=== PATIENT | female | born 1985 | race Caucasian/White ===

== ENCOUNTER 2020-09-28 20:16 | Emergency (ER) | payer OTHER ==
[2020-09-28 20:26] VITALS: BP 145/92; PULSE 107; RESP 18; TEMP 98.9
--- NOTE | 2020-09-28 20:44 | ED ---
General Adult HPI - General Chief complaint: Psychiatric Symptoms Stated complaint: Mental Health Time Seen by Provider: 09/28/20 20:27 Source: patient, EMS Mode of arrival: EMS Limitations: no limitations - History of Present Illness Initial comments: Dictation was produced using [employer] dictation software. please excuse any grammatical, word or spelling errors. This patient was cared for during a federal and state declared state of emergency secondary to Covid 19 Chief Complaint: Patient is a 35-year-old female with suicidal thoughts. History of Present Illness: 35-year-old female she is under a lot of stress because she had her children removed from her house by CPS due to unsafe living conditions secondary to patient's alcohol abuse. Patient encountered law enforcement. She stated to them that she she was suicidal. She is brought here by law enforcement. Patient denies being suicidal at this time. She denies any history of psychiatric disease. Patient has any homicidal ideation. No visual or auditory hallucinations. The ROS documented in this emergency department record has been reviewed and confirmed by me. Those systems with pertinent positive or negative responses have been documented in the HPI. All other systems are other negative and/or noncontributory. PHYSICAL EXAM: General Impression: Alert and oriented x3, not in acute distress HEENT: Normocephalic atraumatic, extra-ocular movements intact, pupils equal and reactive to light bilaterally, mucous membranes moist. Cardiovascular: Heart regular rate and rhythm Chest: Able to complete full sentences, no retractions, no tachypnea Abdomen: abdomen soft, non-tender, non-distended, no organomegaly Musculoskeletal: Pulses present and equal in all extremities, no peripheral edema Motor: no focal deficits noted Neurological: CN II-XII grossly intact, no focal motor or sensory deficits noted Skin: Intact with no visualized rashes Psych: Tearful ED course: 35-year-old female presents to the emergency department after stating to enforcement that she is suicidal. As upon arrival are within acceptable limits. Patient medically stable at this time. She is cleared for EPS evaluation. Patient evaluated by EPS and recommended discharge and discharge planning. Agree with this disposition. Patient be discharged. - Related Data Home Medications Medication Instructions Recorded Confirmed No Known Home Medications 09/28/20 09/28/20 Allergies Allergy/AdvReac Type Severity Reaction Status Date / Time No Known Allergies Allergy Unverified 09/28/20 21:05 Review of Systems ROS Statement: Those systems with pertinent positive or pertinent negative responses have been documented in the HPI. ROS Other: All systems not noted in ROS Statement are negative. Past Medical History Past Medical History: No Reported History History of Any Multi-Drug Resistant Organisms: None Reported Smoking Status: Current every day smoker Past Alcohol Use History: Occasional Past Drug Use History: Cocaine General Exam Limitations: no limitations Course Vital Signs 09/28/20 20:18 Temperature 98.9 F Pulse Rate 107 H Respiratory 18 Rate Blood Pressure 145/92 O2 Sat by Pulse 97 Oximetry Disposition Clinical Impression: Suicidal ideation Disposition: HOME SELF-CARE Condition: Good Instructions (If sedation given, give patient instructions): Suicide Prevention (ED) Is patient prescribed a controlled substance at d/c from ED?: No Referrals: Jose M Mcintosh MD [Primary Care Provider] - 1-2 days Time of Disposition: 22:27
== END 2020-09-28 23:02 | disposition home or self-care (01) ==
LOC: EC 20:16
DX: R45.851 Suicidal ideations (principal); F17.200 Nicotine dependence, unspecified, uncomplicated
CPT/HCPCS: 82075; 99285

== ENCOUNTER 2021-01-09 15:29 | Observation (INO) | payer OTHER ==
[2021-01-09] MEDS ORDERED: LORazepam 2 MG/ML INJ IM STA (16:10)
--- NOTE | 2021-01-09 16:13 | ED ---
General Adult HPI - General Chief complaint: Psychiatric Symptoms Stated complaint: EPS eval Time Seen by Provider: 01/09/21 15:40 Source: patient, EMS Mode of arrival: EMS Limitations: no limitations - History of Present Illness Initial comments: Dictation was produced using [employer] dictation software. please excuse any grammatical, word or spelling errors. This patient was cared for during a federal and state declared state of emergency secondary to Covid 19 Chief Complaint: 35-year-old female presents via EMS for acute psychosis History of Present Illness: 35-year-old female she states she has psychiatric disease. Patient is a poor historian. According to the nurse received 4 from EMS a chin allegedly called 911 capacity brought here to the emergency department. She states she's being stalked by a gentleman named "Leonardo." She states that leonardo used to be her friend however she states that she he's been following her. Patient reports having history of psychiatric illness. States that she takes psychiatric medications. Patient history of present illness Limited by patient not being cooperative. Patient refusing vital signs. She states that there is a microphone right outside of the bed that Leonardo is using to listen to our conversation. Allegedly according to nurse patient recently used methamphetamines. The ROS documented in this emergency department record has been reviewed and confirmed by me. Those systems with pertinent positive or negative responses have been documented in the HPI. All other systems are other negative and/or noncontributory. PHYSICAL EXAM: General Impression: Alert and oriented x3, anxious HEENT: Normocephalic atraumatic, extra-ocular movements intact, pupils equal and reactive to light bilaterally, mucous membranes moist. Cardiovascular: Heart regular rate and rhythm Chest: Able to complete full sentences, no retractions, no tachypnea Abdomen: abdomen soft, non-tender, non-distended, no organomegaly Musculoskeletal: Pulses present and equal in all extremities, no peripheral edema Motor: no focal deficits noted Neurological: CN II-XII grossly intact, no focal motor or sensory deficits noted Skin: Intact with no visualized rashes Psych: Paranoid, psychotic ED course: 35-year-old female with unknown medical history presents to the emergency department with acute psychosis. Patient is uncooperative. Verbal de-escalation is not successful. Patient given IM Ativan 2 mg. Patient is given 2 mg of IM Ativan with no effect. Patient continues to be unc ooperative. Verbal De-escalation continues to be unsuccessful. Patient given 5 days of IM Haldol and 50 mg of IM Benadryl. EKG interpretation: Ventricular rate 108, sinus tachycardia,. Interval 184, QRS 86, QTC 474. No PA prolongation, no QTC prolongation, no ST or T-wave changes noted. Overall, this EKG is unremarkable Patient was mildly hypoglycemic on her laboratory evaluation she was given dextrose IV. She was reevaluated around 8:45 PM found to be in stable medical condition. She is awake, and cooperative. She is tolerating oral intake. Subsequent the glucose measurements were trended. She did become hypoglycemic in the 60s after initiation of oral intake. At this point is unclear why patient's hypoglycemic. She'll be admitted to medicine with psychiatry on consult. Patient be admitted for hyperglycemia. Case discussed with [facility] hospitalist group Dr. Hammonds. - Related Data Home Medications Medication Instructions Recorded Confirmed Albuterol Sulfate [Proair Hfa] 2 puff INHALATION RT-Q6H PRN 01/09/21 01/09/21 Ibuprofen [Motrin] 600 mg PO BID PRN 01/09/21 01/09/21 Lisinopril-Hctz 20-25 mg 1 tab PO DAILY 01/09/21 01/09/21 [Zestoretic 20-25] Vivitrol 380mg/4ml Vial 380 mg PO Q28D 01/09/21 01/09/21 Allergies Allergy/AdvReac Type Severity Reaction Status Date / Time No Known Allergies Allergy Unverified 09/28/20 21:05 Review of Systems ROS Statement: Those systems with pertinent positive or pertinent negative responses have been documented in the HPI. ROS Other: All systems not noted in ROS Statement are negative. Past Medical History Past Medical History: No Reported History History of Any Multi-Drug Resistant Organisms: None Reported Past Surgical History: No Surgical Hx Reported Past Psychological History: Unable to Obtain Smoking Status: Current every day smoker Past Alcohol Use History: Occasional Past Drug Use History: Cocaine, Methamphetamine General Exam Limitations: no limitations Course Vital Signs 01/09/21 01/09/21 15:45 17:32 Pulse Rate 117 H Respiratory 22 Rate Blood Pressure 115/99 104/55 O2 Sat by Pulse 95 Oximetry Procedures - Restraint - Face to Face Restraint Occurrence 1 Patient's Immediate Situation: Endangers self safety, Endangers others' safety, Endangers staff safety Patient's Reaction to the Intervention: Uncooperative Patient's Medical & Behavioral Condition: Awake, Agitated Need to Continue or Terminate Restraint or Seclusion: Continue Face to Face Eval of Restraint Date: 01/09/21 Face to Face Eval of Restraint Time: 17:06 Medical Decision Making - Lab Data Result diagrams: 01/09/21 17:38 01/09/21 17:39 Lab Results 01/09/21 01/09/21 01/09/21 Range/Units 16:09 17:38 17:39 WBC 15.0 H (3.8-10.6) k/uL RBC 4.26 (3.80-5.40) m/uL Hgb 12.5 (11.4-16.0) gm/dL Hct 38.9 (34.0-46.0) % MCV 91.3 (80.0-100.0) fL MCH 29.4 (25.0-35.0) pg MCHC 32.1 (31.0-37.0) g/dL RDW 14.2 (11.5-15.5) % Plt Count 405 (150-450) k/uL MPV 6.4 Neutrophils % 77 % Lymphocytes % 16 % Monocytes % 6 % Eosinophils % 0 % Basophils % 0 % Neutrophils # 11.5 H (1.3-7.7) k/uL Lymphocytes # 2.4 (1.0-4.8) k/uL Monocytes # 0.8 (0-1.0) k/uL Eosinophils # 0.0 (0-0.7) k/uL Basophils # 0.1 (0-0.2) k/uL Sodium 134 L (137-145) mmol/L Potassium 3.8 (3.5-5.1) mmol/L Chloride 105 (98-107) mmol/L Carbon Dioxide 16 L (22-30) mmol/L Anion Gap 13 mmol/L BUN 19 H (7-17) mg/dL Creatinine 0.75 (0.52-1.04) mg/dL Est GFR (CKD-EPI)AfAm >90 (>60 ml/min/1.73 sqM) Est GFR (CKD-EPI)NonAf >90 (>60 ml/min/1.73 sqM) Glucose 62 L (74-99) mg/dL POC Glucose (mg/dL) (75-99) mg/dL POC Glu Record Producer ID Calcium 9.1 (8.4-10.2) mg/dL Creatine Kinase (30-135) U/L Urine HCG, Qual (Not Detectd) Urine Opiates Screen (NotDetected) Ur Oxycodone Screen (NotDetected) Urine Methadone Screen (NotDetected) Ur Propoxyphene Screen (NotDetected) Ur Barbiturates Screen (NotDetected) U Tricyclic Antidepress (NotDetected) Ur Phencyclidine Scrn (NotDetected) Ur Amphetamines Screen (NotDetected) U Methamphetamines Scrn (NotDetected) U Benzodiazepines Scrn (NotDetected) Urine Cocaine Screen (NotDetected) U Marijuana (THC) Screen (NotDetected) Serum Alcohol <10 mg/dL Coronavirus (PCR) Not Detected (Not Detectd) 01/09/21 01/09/21 01/09/21 Range/Units 18:08 18:08 18:48 WBC (3.8-10.6) k/uL RBC (3.80-5.40) m/uL Hgb (11.4-16.0) gm/dL Hct (34.0-46.0) % MCV (80.0-100.0) fL MCH (25.0-35.0) pg MCHC (31.0-37.0) g/dL RDW (11.5-15.5) % Plt Count (150-450) k/uL MPV Neutrophils % % Lymphocytes % % Monocytes % % Eosinophils % % Basophils % % Neutrophils # (1.3-7.7) k/uL Lymphocytes # (1.0-4.8) k/uL Monocytes # (0-1.0) k/uL Eosinophils # (0-0.7) k/uL Basophils # (0-0.2) k/uL Sodium (137-145) mmol/L Potassium (3.5-5.1) mmol/L Chloride (98-107) mmol/L Carbon Dioxide (22-30) mmol/L Anion Gap mmol/L BUN (7-17) mg/dL Creatinine (0.52-1.04) mg/dL Est GFR (CKD-EPI)AfAm (>60 ml/min/1.73 sqM) Est GFR (CKD-EPI)NonAf (>60 ml/min/1.73 sqM) Glucose (74-99) mg/dL POC Glucose (mg/dL) (75-99) mg/dL POC Glu Record Producer ID Calcium (8.4-10.2) mg/dL Creatine Kinase 830 H (30-135) U/L Urine HCG, Qual Not Detected (Not Detectd) Urine Opiates Screen Not Detected (NotDetected) Ur Oxycodone Screen Not Detected (NotDetected) Urine Methadone Screen Not Detected (NotDetected) Ur Propoxyphene Screen Not Detected (NotDetected) Ur Barbiturates Screen Not Detected (NotDetected) U Tricyclic Antidepress Detected H (NotDetected) Ur Phencyclidine Scrn Not Detected (NotDetected) Ur Amphetamines Screen Detected H (NotDetected) U Methamphetamines Scrn Detected H (NotDetected) U Benzodiazepines Scrn Detected H (NotDetected) Urine Cocaine Screen Not Detected (NotDetected) U Marijuana (THC) Screen Detected H (NotDetected) Serum Alcohol mg/dL Coronavirus (PCR) (Not Detectd) 01/09/21 01/09/21 Range/Units 20:25 20:58 WBC (3.8-10.6) k/uL RBC (3.80-5.40) m/uL Hgb (11.4-16.0) gm/dL Hct (34.0-46.0) % MCV (80.0-100.0) fL MCH (25.0-35.0) pg MCHC (31.0-37.0) g/dL RDW (11.5-15.5) % Plt Count (150-450) k/uL MPV Neutrophils % % Lymphocytes % % Monocytes % % Eosinophils % % Basophils % % Neutrophils # (1.3-7.7) k/uL Lymphocytes # (1.0-4.8) k/uL Monocytes # (0-1.0) k/uL Eosinophils # (0-0.7) k/uL Basophils # (0-0.2) k/uL Sodium (137-145) mmol/L Potassium (3.5-5.1) mmol/L Chloride (98-107) mmol/L Carbon Dioxide (22-30) mmol/L Anion Gap mmol/L BUN (7-17) mg/dL Creatinine (0.52-1.04) mg/dL Est GFR (CKD-EPI)AfAm (>60 ml/min/1.73 sqM) Est GFR (CKD-EPI)NonAf (>60 ml/min/1.73 sqM) Glucose (74-99) mg/dL POC Glucose (mg/dL) 88 67 L (75-99) mg/dL POC Glu Record Producer ID Asif Quinn Kyle Calcium (8.4-10.2) mg/dL Creatine Kinase (30-135) U/L Urine HCG, Qual (Not Detectd) Urine Opiates Screen (NotDetected) Ur Oxycodone Screen (NotDetected) Urine Methadone Screen (NotDetected) Ur Propoxyphene Screen (NotDetected) Ur Barbiturates Screen (NotDetected) U Tricyclic Antidepress (NotDetected) Ur Phencyclidine Scrn (NotDetected) Ur Amphetamines Screen (NotDetected) U Methamphetamines Scrn (NotDetected) U Benzodiazepines Scrn (NotDetected) Urine Cocaine Screen (NotDetected) U Marijuana (THC) Screen (NotDetected) Serum Alcohol mg/dL Coronavirus (PCR) (Not Detectd) Disposition Clinical Impression: Hypoglycemia Disposition: ADMITTED IP TO THIS [facility] Condition: Fair Referrals: Jose M Mcintosh MD [Primary Care Provider] - 1-2 days Decision Time: 21:03
[2021-01-09] MEDS ORDERED: HALOPERIDOL LACTATE 5 MG/ML 1 ML VIAL IM STA (17:00)
[2021-01-09] MEDS ORDERED: diphenhydrAMINE 50 MG/ML 1 ML VIAL IM STA (17:00)
[2021-01-09 17:47] LABS: Basophils # (A) 0.1 k/uL (0-0.2); Basophils % (A) 0 %; Eosinophils % (A) 0 %; HCT 38.9 % (34.0-46.0); HGB 12.5 gm/dL (11.4-16.0); Lymphocytes # (A) 2.4 k/uL (1.0-4.8); Lymphocytes % (A) 16 %; MCH 29.4 pg (25.0-35.0); MCHC 32.1 g/dL (31.0-37.0); MCV 91.3 fL (80.0-100.0); Mean Platelet Volume 6.4; Monocytes # (A) 0.8 k/uL (0-1.0); Monocytes % (A) 6 %; Neutrophils # (A) 11.5 k/uL (1.3-7.7); Neutrophils % (A) 77 %; Platelet Count 405 k/uL (150-450); RBC 4.26 m/uL (3.80-5.40); RDW 14.2 % (11.5-15.5)
[2021-01-09 17:56] LABS: African American GFR (CKD) >90 (>60 ml/min/1.73 sqM); Alcohol <10 mg/dL; Anion Gap 13 mmol/L; Blood Urea Nitrogen 19 mg/dL (7-17); Calcium 9.1 mg/dL (8.4-10.2); Carbon Dioxide 16 mmol/L (22-30); Chloride 105 mmol/L (98-107); Glucose 62 mg/dL (74-99); Non-African American GFR(CKD) >90 (>60 ml/min/1.73 sqM); Potassium 3.8 mmol/L (3.5-5.1); Sodium 134 mmol/L (137-145)
[2021-01-09 18:29] LABS: Urn Cannabinoid Scrn Detected (NotDetected)
[2021-01-09 18:30] LABS: Amphetamine Screen,Urine Detected (NotDetected); Barbiturate Screen,Urine Not Detected (NotDetected); Benzodiazepines Screen,Urine Detected (NotDetected); Cocaine Screen,Urine Not Detected (NotDetected); Methadone Screen, Urine Not Detected (NotDetected); Opiate Screen,Urine Not Detected (NotDetected); Oxycodone Screen, Urine Not Detected (NotDetected); Phencyclidine Screen,Urine Not Detected (NotDetected); Tricyclic Antidepressant,Urine Detected (NotDetected)
[2021-01-09] MEDS ORDERED: DEXTROSE 50% SYRINGE 50 ML IVP STA (18:33)
[2021-01-09 20:27] LABS: Glucose,Whole Blood 88 mg/dL (75-99)
[2021-01-09 21:01] LABS: Glucose,Whole Blood 67 mg/dL (75-99)
[2021-01-09] MEDS ORDERED: NALOXONE 0.4 MG/ML 1 ML VIAL IV PRN (21:04)
[2021-01-09] MEDS ORDERED: ACETAMINOPHEN TAB 325 MG TAB PO PRN (21:04)
[2021-01-09] MEDS ORDERED: ONDANSETRON 4 MG/2 ML VIAL IVP PRN (21:04)
[2021-01-09 21:39] LABS: Glucose,Whole Blood 107 mg/dL (75-99)
[2021-01-09] MEDS: SODIUM CHLORIDE 0.9% 1,000 ML IV SCH (22:10)
[2021-01-09 22:54] LABS: Glucose,Whole Blood 91 mg/dL (75-99)
[2021-01-09 23:53] LABS: Glucose,Whole Blood 88 mg/dL (75-99)
[2021-01-10 01:29] LABS: Glucose,Whole Blood 79 mg/dL (75-99)
[2021-01-10 03:43] LABS: Glucose,Whole Blood 89 mg/dL (75-99)
[2021-01-10 05:56] LABS: Glucose,Whole Blood 75 mg/dL (75-99)
[2021-01-10 07:16] LABS: Glucose,Whole Blood 93 mg/dL (75-99)
[2021-01-10 10:50] LABS: Glucose,Whole Blood 161 mg/dL (75-99)
[2021-01-10 12:18] LABS: Glucose,Whole Blood 130 mg/dL (75-99)
[2021-01-10] MEDS ORDERED: ALBUTEROL HFA INHALER INHALATION PRN (12:55)
[2021-01-10] MEDS ORDERED: Potassium Replacement Protocol 1 EACH MISC MISCELLANE PRN (12:56)
[2021-01-10] MEDS ORDERED: Magnesium Replacement Protocol 1 EACH MISC MISCELLANE PRN (12:56)
[2021-01-10] MEDS: SODIUM CHLORIDE 0.9% 1,000 ML IV SCH (13:31)
[2021-01-10] MEDS: PANTOPRAZOLE 40 MG TABLET PO SCH (13:31)
[2021-01-10] MEDS: HEPARIN SODIUM,PORCINE/PF 5,000 UNIT/0.5 ML SYRINGE SQ SCH ×2 (13:31→21:44)
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
[2021-01-10 14:09] LABS: ALT 38 U/L (4-34); AST 69 U/L (14-36); African American GFR (CKD) >90 (>60 ml/min/1.73 sqM); Albumin 3.2 g/dL (3.5-5.0); Albumin/Globulin Ratio 1.2; Alkaline Phosphatase 72 U/L (38-126); Anion Gap 3 mmol/L; Blood Urea Nitrogen 19 mg/dL (7-17); Calcium 8.7 mg/dL (8.4-10.2); Carbon Dioxide 28 mmol/L (22-30); Chloride 106 mmol/L (98-107); Globulin 2.6 g/dL; Glucose 126 mg/dL (74-99); Non-African American GFR(CKD) >90 (>60 ml/min/1.73 sqM); Potassium 4.3 mmol/L (3.5-5.1); Sodium 137 mmol/L (137-145); Total Bilirubin 0.5 mg/dL (0.2-1.3); Total Protein 5.8 g/dL (6.3-8.2)
--- NOTE | 2021-01-10 14:14 | XR ---
EXAMINATION TYPE: XR chest 1V portable DATE OF EXAM: 01/10/2021 COMPARISON: NONE HISTORY: Chest pain TECHNIQUE: Single frontal view of the chest is obtained. FINDINGS: There is no focal air space opacity, pleural effusion, or pneumothorax seen. The cardiac silhouette size is within normal limits. The osseous structures are intact. IMPRESSION: 1. No acute process.
--- NOTE | 2021-01-10 14:30 | HP ---
HISTORY AND PHYSICAL DATE OF SERVICE: 01/10/2021. CHIEF COMPLAINT: Acute psychosis. HISTORY OF PRESENT ILLNESS: This 35-year-old woman with a past medical history of no significant medical issues being followed by Dr. Mcintosh in the outpatient setting, apparently not eating well for the last several days. Patient was taking a significant amount of methamphetamines and doing drugs according to her and the patient thinks that the patient is stalked by a gentleman named Leonardo. The patient was confused and the patient was not being cooperative. Patient taken to [facility] and patient was found to have hypoglycemia hypoglycemia among other things with sugars improved to 160. Creatine kinase elevated to 830. The urine drug screen showed positive for tricyclic antidepressants, amphetamines, methamphetamines, benzodiazepines, and as well as THC also. COVID-19 was negative. White count is elevated to 15. There is no history of any fever, rigors. No history of headache, loss of consciousness, or seizures. PAST MEDICAL HISTORY: History possibly psychiatric medications, smoking and cocaine, methamphetamine previously. MEDICATIONS: Medications are home medications: 1. Vivitrol. 2. Motrin. 3. Lisinopril. 4. ProAir. ALLERGIES: None. FAMILY HISTORY: No history of heart disease or strokes in the family. SOCIAL HISTORY: Multiple substance abuse, polysubstance abuse, as mentioned earlier. REVIEW OF SYSTEMS: ENT: No diminished hearing or diminished vision. CARDIOVASCULAR SYSTEM: No angina, palpitations. RESPIRATORY SYSTEM: No cough or hemoptysis. GI: No nausea, vomiting. : No dysuria. NERVOUS SYSTEM: No numbness, weakness. ALLERGY/IMMUNOLOGY: No asthma. MUSCULOSKELETAL: As mentioned earlier. HEMATOLOGY/ONCOLOGY: No history of anemia. ENDOCRINE: No history of diabetes or hypothyroidism. CONSTITUTIONAL: As mentioned earlier. DERMATOLOGY: Negative. RHEUMATOLOGY: Negative. PSYCHIATRY: As mentioned earlier. PHYSICAL EXAMINATION: Alert and oriented x3. Pulse is 106, blood pressure 119/71, respiration 20, temperature 98.1, pulse ox 98% on room air. HEENT: Conjunctivae normal. NECK: No jugular venous distention. CARDIOVASCULAR: S1, S2 muffled. RESPIRATORY: Breath sounds diminished at the bases. No rhonchi, no crackles. ABDOMEN: Soft, nontender. No mass palpable. LEGS: No edema, no swelling. NERVOUS SYSTEM: Higher function as mentioned earlier. Moves all 4 limbs. No focal deficit. No signs of cerebellar dysfunction. Gait not tested. SKIN: No ulcer, rash or bleeding. JOINTS: No active deforming arthropathy. LABS: WBC 15. Sodium 134. CO2 16. Creatine kinase is 830. ASSESSMENT: 1. Change in mental status, possible acute psychosis. 2. Polysubstance abuse. 3. Acute metabolic encephalopathy multifactorial. 4. Acute rhabdomyolysis. 5. Hyponatremia. 6. Hypoglycemia possibly secondary to poor p.o. intake. 7. Increased WBC. 8. Neutrophil increased. 9. History of nicotine dependence. 10.History of methamphetamine. 11.History of cocaine. 12.FULL CODE. RECOMMENDATIONS AND DISCUSSION: This 35-year-old woman who presented with multiple complex medical issues, at this time I recommend to continue current medications, continue symptomatic treatment. Continue with IV fluids. The blood sugar has been improved at this time. Otherwise there is no previous history of hypoglycemia. I would recommend psychiatric consultation. Symptomatic treatment. White count is elevated. I would also obtain cultures and look for any evidence of infection at this time. Otherwise, overall prognosis guarded because of multiple complex medical issues. Further recommendations to follow. A copy of dictation forwarded to Dr. Mcintosh who is the primary physician. MMODL / IJN: [id number] /
--- NOTE | 2021-01-10 14:57 | CT ---
EXAMINATION TYPE: CT brain wo con DATE OF EXAM: 01/10/2021 COMPARISON: None. HISTORY: Hypoglycemia non obvious source, stroke. Acute onset mental status changes and confusion. Hy poglycemia. CT DLP: 1063.4 mGycm. Automated Exposure Control for Dose Reduction was Utilized. TECHNIQUE: CT scan of the head is performed without contrast. FINDINGS: There is no acute intracranial hemorrhage or midline shift identified. The ventricles an d sulci are within normal limits in size. The globes are intact and the visualized sinuses are clear . IMPRESSION: No acute intracranial hemorrhage, mass effect, or midline shift is seen.
[2021-01-10 17:48] LABS: Glucose,Whole Blood 79 mg/dL (75-99)
[2021-01-10 19:36] LABS: Glucose,Whole Blood 145 mg/dL (75-99)
[2021-01-10 20:55] LABS: Appearance,Urine Cloudy (Clear); Bacteria,Urine Rare /hpf; Bilirubin,Urine Negative (Negative); Blood,Urine Large (Negative); Color,Urine Yellow; Glucose,Urine (UA) Negative (Negative); Ketones,Urine 1+ (Negative); Leukocyte Esterase,Urine Negative (Negative); Mucus,Urine Few /hpf; Nitrite,Urine Negative (Negative); PH, Urine 6.5 (5.0-8.0); Protein,Urine Negative (Negative); RBC,Urine 1 /hpf (0-5); Specific Gravity,Urine 1.019 (1.001-1.035); Squamous Epithelial Cell,Urine 5 /hpf (0-4); Urobilinogen,Urine <2.0 mg/dL (<2.0); WBC,Urine 3 /hpf (0-5)
[2021-01-10] MEDS ORDERED: QUEtiapine 25 MG TAB PO SCH (21:00)
[2021-01-10] MEDS ORDERED: risperiDONE 0.5 MG TAB PO SCH (21:00)
[2021-01-11 02:19] LABS: Glucose,Whole Blood 94 mg/dL (75-99)
[2021-01-11] MEDS: SODIUM CHLORIDE 0.9% 1,000 ML IV SCH ×3 (06:02→20:15)
[2021-01-11 06:40] LABS: Basophils % (A) 0 %; Eosinophils # (A) 0.1 k/uL (0-0.7); Eosinophils % (A) 1 %; HCT 38.5 % (34.0-46.0); HGB 12.2 gm/dL (11.4-16.0); Lymphocytes # (A) 3.8 k/uL (1.0-4.8); Lymphocytes % (A) 53 %; MCHC 31.7 g/dL (31.0-37.0); MCV 91.6 fL (80.0-100.0); Mean Platelet Volume 6.9; Monocytes # (A) 0.5 k/uL (0-1.0); Monocytes % (A) 8 %; Neutrophils # (A) 2.6 k/uL (1.3-7.7); Neutrophils % (A) 37 %; Platelet Count 395 k/uL (150-450); RDW 14.2 % (11.5-15.5); WBC 7.2 k/uL (3.8-10.6)
[2021-01-11 07:19] LABS: Glucose,Whole Blood 85 mg/dL (75-99)
[2021-01-11] MEDS: PANTOPRAZOLE 40 MG TABLET PO SCH (08:08)
[2021-01-11] MEDS: HEPARIN SODIUM,PORCINE/PF 5,000 UNIT/0.5 ML SYRINGE SQ SCH (08:09)
[2021-01-11 11:27] LABS: Magnesium 1.8 mg/dL (1.5-2.4)
[2021-01-11 12:08] LABS: Glucose,Whole Blood 99 mg/dL (75-99)
--- NOTE | 2021-01-11 12:24 | DS ---
DISCHARGE SUMMARY FINAL DIAGNOSES: 1. Change in mental status possible acute psychosis. 2. Polysubstance abuse. 3. Acute metabolic encephalopathy, multifactorial. 4. Acute rhabdomyolysis. 5. Hyponatremia. 6. Hypoglycemia possibly secondary from poor p.o. intake. 7. Increased WBC. 8. History of nicotine dependence. 9. History of methamphetamine. 10.History of cocaine. 11.FULL CODE. DISCHARGE DISPOSITION: The patient will be discharged in stable condition with guarded prognosis. HISTORY OF PRESENT ILLNESS: This 35-year-old with a past medical history of multiple medical problems admitted with psychosis and hypoglycemia, treated symptomatically, improved significantly. White count improved to 7.2. UA is unremarkable. On exam, vitals are stable. CARDIOVASCULAR: S1, S2 muffled. ABDOMEN: Soft. NERVOUS SYSTEM: No focal deficits. The patient will be discharged in stable with guarded prognosis with inpatient psych. DISCHARGE MEDICATIONS: 1. Ibuprofen p.r.n. 2. Albuterol p.r.n. 3. Vivitrol as before. 4. Lisinopril hydrochlorothiazide 1 tablet p.o. daily. 5. Seroquel 75 mg at bedtime. 6. Tylenol p.r.n. Once again the patient will be discharged in stable condition with guarded prognosis. MMODL / IJN: [id number] /
[2021-01-11 17:29] LABS: Glucose,Whole Blood 97 mg/dL (75-99)
[2021-01-11] MEDS ORDERED: MAGNESIUM HYDROXIDE 2,400 MG/10 ML CUP PO PRN (19:33)
[2021-01-11] MEDS ORDERED: LORazepam 1 MG TAB PO PRN (19:33)
[2021-01-11] MEDS ORDERED: MAG HYDROX/AL HYDROX/SIMETH 30 ML CUP PO PRN (19:33)
[2021-01-11] MEDS ORDERED: LORazepam 2 MG/ML INJ IM PRN (19:42)
[2021-01-11] MEDS ORDERED: HALOPERIDOL LACTATE 5 MG/ML 1 ML VIAL IM PRN (19:43)
[2021-01-11] MEDS ORDERED: NICOTINE 14MG/24HR PATCH TRANSDERM SCH (19:45)
[2021-01-11 20:14] VITALS: BP 144/81; PULSE 84; RESP 18; TEMP 98.2
[2021-01-11 20:17] LABS: Glucose,Whole Blood 115 mg/dL (75-99)
[2021-01-12] MEDS ORDERED: LISINOPRIL-HCTZ 20-25 MG 1 EACH TAB PO SCH (09:00)
== END 2021-01-11 20:15 ==
LOC: EC 15:29 → 5NMEDONC 21:04
PROVIDERS: ADMIT Internal Medicine; ATTEND Internal Medicine
DX: F23 Brief psychotic disorder (principal); E16.2 Hypoglycemia, unspecified; G93.41 Metabolic encephalopathy; F10.19 Alcohol abuse with unspecified alcohol-induced disorder; F22 Delusional disorders; E87.1 Hypo-osmolality and hyponatremia; R00.0 Tachycardia, unspecified; R63.0 Anorexia; D72.829 Elevated white blood cell count, unspecified; M62.82 Rhabdomyolysis; F41.9 Anxiety disorder, unspecified; F32.9 Major depressive disorder, single episode, unspecified; F17.200 Nicotine dependence, unspecified, uncomplicated; F12.90 Cannabis use, unspecified, uncomplicated; Z59.0 Homelessness; Z79.899 Other long term (current) drug therapy; Z20.822 Contact with and (suspected) exposure to COVID-19; Z86.59 Personal history of other mental and behavioral disorders; Z81.1 Family history of alcohol abuse and dependence
CPT/HCPCS: 96376 ×2; 82075; 96372; 96374; 99285; 36415; 93005 ×2; 80053; 80048; 82550 ×2; 83735; 85025 ×2; 81001; 81025; 87040; 80306; 87635; 71045; 70450; G0378 ×3; G0480; J2060; J1200; J1630; J1644 ×2; 80320

== ENCOUNTER 2021-01-11 18:51 | Inpatient (IN) | payer MEDICAID, OTHER ==
[2021-01-11] MEDS ORDERED: MAG HYDROX/AL HYDROX/SIMETH 30 ML CUP PO PRN (19:57)
[2021-01-11] MEDS ORDERED: LORazepam 1 MG TAB PO PRN (19:57)
[2021-01-11] MEDS ORDERED: MAGNESIUM HYDROXIDE 2,400 MG/10 ML CUP PO PRN (19:57)
[2021-01-11] MEDS ORDERED: ACETAMINOPHEN TAB 325 MG TAB PO PRN (20:06)
[2021-01-11] MEDS ORDERED: LORazepam 2 MG/ML INJ IM PRN (20:07)
[2021-01-11] MEDS ORDERED: HALOPERIDOL LACTATE 5 MG/ML 1 ML VIAL IM PRN (20:07)
[2021-01-11] MEDS ORDERED: ALBUTEROL HFA INHALER INHALATION PRN (20:11)
[2021-01-11] MEDS ORDERED: QUEtiapine 25 MG TAB PO SCH (21:00)
[2021-01-11] MEDS: NICOTINE 14MG/24HR PATCH TRANSDERM SCH (21:37)
[2021-01-12] MEDS: LISINOPRIL-HCTZ 20-25 MG 1 EACH TAB PO SCH (09:08)
[2021-01-12] MEDS: NICOTINE 14MG/24HR PATCH TRANSDERM SCH (09:08)
[2021-01-12] MEDS ORDERED: TOPIRAMATE 25 MG TAB PO STA (10:58)
[2021-01-12] MEDS ORDERED: VENLAFAXINE HCL ER 37.5 MG CAP PO STA (10:59)
--- NOTE | 2021-01-12 13:38 | P.HP ---
Psychiatric H&P - . H&P Date: 01/12/21 History & Physical: Allergies Allergy/AdvReac Type Severity Reaction Status Date / Time No Known Allergies Allergy Unverified 01/11/21 20:54 Vital Signs Temp 97.7 F 01/12/21 06:38 Pulse 92 01/12/21 09:10 Resp 16 01/12/21 09:10 BP 133/99 01/12/21 09:10 Pulse Ox 96 01/11/21 20:18 Intake & Output 01/11/21 01/12/21 01/12/21 18:59 06:59 18:59 Weight 76.476 kg 01/12/21 13:29 IDENTIFYING DATA: Patient is a single, unemployed, 35 year old female who was admitted for psychosis. HPI: Patient presented to the hospital on 01/09/2021, brought in by EMS after the patient called 911 because she felt concern for safety. The patient reports that she was running around town and through the combs out of fear that her daughter and her friend "Leonardo" were chasing her. Patient is unable to determine why they were chasing her and she suspects that this is likely due to the methamphetamine drugs that she has consumed. Currently, the patient is not reporting any auditory or visual hallucinations. She is denying any paranoia or delusions at this time. The patient does endorse a significant history of depression and anxiety. She states that she's been feeling increasingly depressed for years. She expresses that this has been getting worse over the past year. She endorses feelings of hopelessness, helplessness, low mood, low motivation, low energy, increased sleep, and crying episodes. The patient vehemently denies any prior attempts at suicide and is currently denying any suicidal or homicidal ideation, intention, and/or plan. The patient does not report any significant history of bipolar disorder symptoms in the context of sobriety. The patient does have a significant history of substance abuse. The patient states that her drug of choice is alcohol with her last drink being this past Friday. The patient reports that she drinks up to 6 beers and a pint of fire ball per night. She states that this occurs daily. She reports she began drinking heavily at the age of 13. She states that within the past year she began using methamphetamines. She reports smoking and intranasally ingesting methamphetamines. She reports daily marijuana use. She reports smoking one pack per day of tobacco. She states that the longer she has been sober was for 18 months when she was on probation for multiple DWIs. The patient states that she's been to rehabilitation twice with the last time being this past September for 40 days in [place]. PAST PSYCHIATRIC HISTORY: Patient states that she is interested diagnosed with depression and anxiety. The patient reports that she has had previous trials of Cymbalta, Seroquel, and Topamax. Patient denies any previous psychiatric hospitalizations. The patient is currently open for outpatient psychiatry with Dr Estrada. Patient denies any history of suicide attempts in the past. PMH: Hypertension ALLERGIES: NO KNOWN DRUG ALLERGIES CHEMICAL DEPENDENCY HISTORY: As per HPI FAMILY PSYCHIATRIC/SUBSTANCE USE HISTORY: The patient reports that her maternal grandparents were alcoholics. She denies any psychiatric history. SOCIAL HISTORY: The patient reports that she is single, never , and has 2 children; a 15-year-old daughter, and a 10-year-old son. Her daughter is currently living with the patient's mother. Her sons living with a friend named Abraham. The patient's children's father in 2013 in a car accident. Patient reports she graduated high school. She reports no source of income currently. She is homeless and has been staying with friends, motels, and shelters. She does report a history of legal problems including 3 DWIs in the past. She reports being incarcerated for 180 days because of this. She denies any current probation or parole. She denies any history. She denies any significant history of trauma. MENTAL STATUS EXAM: General Appearance: Patient appears to be stated age is alert, directable, and attempts to cooperate. Patient appears to have poor hygiene and grooming. Patient appears disheveled with unkempt hair. Dressed in a hospital gown. Behavior: Patient is seated without any agitated behavior. Psychomotor slowing is evident. Speech: Patient's speech is fluent and nonpressured. Nonspontaneous, monotone, and low in volume. Mood/Affect: Patient reports their mood is depressed, affect is congruent, withdrawn, sad, and constricted. Suicidality/Homicidality: Patient denies having any homicidal ideation intent or plan. Denies any suicidal ideations intent or plan Perceptions: Patient denies any visual hallucinations and denies any auditory hallucinations Though content/process: There is no evidence of any delusional thought content and thought process is linear and goal-directed. Memory and concentration: AOX3, grossly intact for the purposes of this session. Can spell "WORLD" backwards Judgment and insight: poor STRENGTHS/WEAKNESSES: Strength is that patient is resilient. Weakness is that patient is homeless and has significant substance abuse problems. INTELLECT: average IMPRESSIONS: Psychosis, unspecified, likely synergy with impediment abuse - resolving Major depressive disorder Methamphetamine abuse Alcohol abuse Cannabis abuse Nicotine dependence PLAN: -Patient is admitted under voluntary status to [facility] for stabilization of psychiatric symptoms and safety. Patient signed adult voluntary form and medication consent and is placed in patient's chart. -Medications : Will start patient on Topamax 25 mg by mouth twice a day for off-label use for alcohol use disorder Effexor 75 mg by mouth daily for depression/anxiety - gradually titrate over the weekend pending patient's response and tolerance of the medication Seroquel 100 mg by mouth at bedtime for mood augmentation/psychosis - gradually titrate over the weekend pending patient's response and tolerance of the medication -Ativan and Haldol PRN for agitation/aggression -Patient was counselled on substance abuse and desired to cut back on use -Patient was informed of the risks, benefits and side effects of the medication and patient verbally consented to taking the medications. Patient signed med consent form and was placed in chart. -Internal Medicine consult to perform medical evaluation and physical. -NRT - nicotine patch -SW on board for discharge planning. Encourage patient to participate in groups to work on coping skills.
--- NOTE | 2021-01-12 18:19 | CONS ---
CONSULTATION DATE OF SERVICE: 01/12/2021 REASON FOR CONSULTATION: Advice regarding hypoglycemia and other multiple medical issues, requested by Psychiatry. HISTORY OF PRESENT ILLNESS: This 35-year-old woman with a past medical history of multiple medical problems was admitted with significant psychosis and polysubstance abuse. Patient's blood sugar was found to be extremely low. Patient was apparently not eating for several days, but after IV fluid and supplementation improved at this time. CT brain and other evaluations have been negative. There is no history of any fever, rigor or chills. No history of headache, loss of consciousness, seizures. PAST MEDICAL HISTORY: History of asthma, hypertension, seizure disorder, hypothyroidism, anxiety, bipolar, depression. MEDICATIONS: Medications prior to admission include Topamax, Claritin, ProAir, Vivitrol, Seroquel, Zestoretic, Motrin, Cymbalta. ALLERGIES: NONE. FAMILY HISTORY: History of cancer, alcohol abuse. SOCIAL HISTORY: History of alcohol, cocaine and marijuana. REVIEW OF SYSTEMS: ENT: No diminished hearing. No diminished vision. CARDIOVASCULAR SYSTEM: No angina, palpitations. RESPIRATORY SYSTEM: No cough, hemoptysis. GI: No nausea, vomiting. : No dysuria or retention. NERVOUS SYSTEM: As mentioned earlier. ALLERGY/IMMUNOLOGY: No asthma, hayfever. MUSCULOSKELETAL: No history of any DJD. ENDOCRINE: As mentioned earlier. CONSTITUTIONAL: As mentioned earlier. DERMATOLOGY: Negative. RHEUMATOLOGY: Negative. PSYCHIATRY: As mentioned earlier. PHYSICAL EXAMINATION: Patient alert and oriented x3. Pulse 92, blood pressure 133/99, respirations 16, temperature 97.7, pulse ox 96% on room air. HEENT: Conjunctivae normal. NECK: No jugular venous distention. CARDIOVASCULAR SYSTEM: S1, S2 muffled. RESPIRATORY SYSTEM: Breath sounds diminished at the bases. No rhonchi. No crackles. ABDOMEN: Soft, non-tender. No mass palpable. LEGS: No edema. No swelling. NERVOUS SYSTEM: Higher functions as mentioned earlier. Cranial nerves II-XII grossly intact. Eye movements full in all directions. No nystagmus. No diplopia. Moves all 4 limbs. No weakness. Gait is normal. SKIN: No ulcer, rash, bleeding. JOINTS: No active deforming arthropathy. LYMPHATICS: No lymph node palpable in neck, axillae or groin. LABS: Labs are not available at this time. ASSESSMENT: 1. Change in mental status and possible acute psychosis. 2. Hypoglycemia, present on admission, secondary to possibly poor oral intake, improved. 3. Polysubstance abuse. 4. Acute metabolic encephalopathy, multifactorial, present on admission. 5. History of recent rhabdomyolysis. 6. Hyponatremia. 7. Increased white count. 8. History of nicotine dependence. 9. History of methamphetamine. 10.History of cocaine. 11.FULL CODE. RECOMMENDATIONS AND DISCUSSION: I recommend to continue current medications, continue with the monitoring, symptomatic treatment. I recommend creatine kinase estimation to ensure the levels are coming down. Otherwise, recommend p.o. hydration. Resume the home medications. Recommend followup with a primary physician closely after discharge. Substance abuse counseling and rehab. Will follow the patient closely with you. The labs are not available at this time. If there are any abnormal labs, we will be happy to review. Thank you for letting us participate in the care of this patient. ADWOA / JOSLYN: [id number] / MIKAYLA
[2021-01-12] MEDS: TOPIRAMATE 25 MG TAB PO SCH (21:36)
[2021-01-12] MEDS: QUEtiapine 100 MG TAB PO SCH (21:36)
[2021-01-13] MEDS: NICOTINE 14MG/24HR PATCH TRANSDERM SCH (08:47)
[2021-01-13] MEDS: LISINOPRIL-HCTZ 20-25 MG 1 EACH TAB PO SCH (08:47)
[2021-01-13] MEDS: MULTIVITAMINS, THERA 1 EACH TAB PO SCH (08:47)
[2021-01-13] MEDS: TOPIRAMATE 25 MG TAB PO SCH ×2 (08:47→20:58)
[2021-01-13] MEDS ORDERED: VENLAFAXINE HCL ER 75 MG CAP PO SCH (09:00)
--- NOTE | 2021-01-13 10:50 | P.PN ---
Progress Note - Text Progress Note Date: 01/13/21 Interval History: Patient was seen and stated that she was "pushed out of down". She stated she was not using any drugs. She stated that she was told that she was hallucinating but she does not think she was. She is still paranoid and thinks people are "joking on her". She is agreeable to speak with commercial insurance underwriter. At this time patient denies any suicidal or homical ideations. She has no insight into her problems. Patient denies any side effects from the medications and said she has been compliant with meds. Mental Status Exam: General Appearance: Patient appears to be stated age is alert, directable, and cooperative. Behavior: Patient is calmly seated without any agitated behavior. Speech: Patient's speech is fluent and nonpressured. Mood/Affect: Mood is improving mildly, affect is congruent and constricted. Suicidality/Homicidality: Patient denies having any suicidal or homicidal ideation intent or plan. Perceptions: Patient denies any visual hallucinations and denies any auditory hallucinations Though content/process: There is evidence of delusional thought content and thought process is linear and goal-directed. Memory and concentration: AOX3, grossly intact for the purposes of this session Judgment and insight: Improving mildly Assessment Kerry was admitted with psychosis and continues to have severe residual symptoms of psychosis as yet and is delusional. She stated that she is taking her medication and does not show any side effects. Plan: -Patient continues to meet criteria for inpatient psychiatric admission for symptom stabilization and safety. -Medications: Stated she is compliant with her medications -When necessary Ativan and Haldol for agitation/aggression. -SW on board for discharge planning. Encouraged the patient to participate in milieu.
[2021-01-13] MEDS: QUEtiapine 100 MG TAB PO SCH (20:58)
[2021-01-14] MEDS: TOPIRAMATE 25 MG TAB PO SCH ×2 (08:39→20:57)
[2021-01-14] MEDS: LISINOPRIL-HCTZ 20-25 MG 1 EACH TAB PO SCH (08:39)
[2021-01-14] MEDS: NICOTINE 14MG/24HR PATCH TRANSDERM SCH (08:39)
[2021-01-14] MEDS: MULTIVITAMINS, THERA 1 EACH TAB PO SCH (08:39)
[2021-01-14] MEDS: VENLAFAXINE HCL ER 150 MG CAP PO SCH (08:40)
[2021-01-14 08:43] VITALS: RESP 16
--- NOTE | 2021-01-14 12:05 | P.PN ---
Progress Note - Text Progress Note Date: 01/14/21 Interval History: Patient was seen in her room and is agreeable to speak with automobile service writer. Patient presented to the hospital on 01/09/2021, brought in by EMS after the patient called 911 because she felt concern for safety. The patient reports that she was running around town and through the combs out of fear that her daughter and her friend "Leonardo" were chasing her. . Patient denies any side effects from the medications and has been compliant with meds. Mental Status Exam: General Appearance: Patient appears to be stated age is directable, and cooperative. Behavior: Patient is calm without any agitated behavior. Speech: Patient's speech is not fluent and nonpressured. Mood/Affect: Mood is improving mildly, affect is constricted. Suicidality/Homicidality: Patient denies having any suicidal or homicidal ideation intent or plan. Perceptions: Patient denies any visual hallucinations and denies any auditory hallucinations Though content/process: There is still evidence of delusional thoughts and patient believes that people are joking about her. Memory and concentration: AOX3, grossly intact for the purposes of this session Judgment and insight: Improving mildly Assessment Patient continues to show symptoms of psychosis and breakdown with reality testi ng. Plan: -Patient continues to meet criteria for inpatient psychiatric admission for symptom stabilization and safety. -Medications: Patient stated that she is compliant with her medications even though she does not think she needs them. -When necessary Ativan and Haldol for agitation/aggression. -SW on board for discharge planning. Encouraged the patient to participate in milieu.
[2021-01-14] MEDS: QUEtiapine 100 MG TAB PO SCH (20:57)
[2021-01-15] MEDS: NICOTINE 14MG/24HR PATCH TRANSDERM SCH (08:24)
[2021-01-15] MEDS: VENLAFAXINE HCL ER 150 MG CAP PO SCH (08:24)
[2021-01-15] MEDS: TOPIRAMATE 25 MG TAB PO SCH (08:24)
[2021-01-15] MEDS: MULTIVITAMINS, THERA 1 EACH TAB PO SCH (08:24)
[2021-01-15 09:08] VITALS: TEMP 97.9
[2021-01-15] MEDS: LISINOPRIL-HCTZ 20-25 MG 1 EACH TAB PO SCH (09:31)
[2021-01-15 09:32] VITALS: BP 122/60
[2021-01-15 09:52] VITALS: PULSE 96
--- NOTE | 2021-01-15 11:38 | P.DS ---
Providers Date of admission: 01/11/21 18:51 Expected date of discharge: 01/15/21 Attending physician: Anmol Marina MD Consults: 01/11/21 19:57 Consult Physician Routine Consulting Provider: Miki Alfaro Consult Reason/Comments: medical management/H&P Do you want consulting provider notified?: Yes Primary care physician: Jose M Mcintosh - Discharge Diagnosis(es) (1) Drug psychosis Current Visit: Yes Status: Acute Priority: High (2) Major depressive disorder Current Visit: Yes Status: Acute Priority: High (3) Methamphetamine abuse Current Visit: Yes Status: Chronic Priority: Medium (4) Alcohol abuse Current Visit: Yes Status: Chronic Priority: Medium (5) Cannabis abuse Current Visit: Yes Status: Chronic Priority: Medium (6) Nicotine dependence Current Visit: Yes Status: Chronic Priority: Medium Hospital Course: Admission HPI: Patient is a single, unemployed, 35 year old female who was admitted for psychosis. Patient presented to the hospital on 01/09/2021, brought in by EMS after the patient called 911 because she felt concern for safety. The patient reports that she was running around town and through the combs out of fear that her daughter and her friend "Leonardo" were chasing her. Patient is unable to determine why they were chasing her and she suspects that this is likely due to the methamphetamine drugs that she has consumed. Currently, the patient is not reporting any auditory or visual hallucinations. She is denying any paranoia or delusions at this time. The patient does endorse a significant history of depression and anxiety. She states that she's been feeling increasingly depressed for years. She expresses that this has been getting worse over the past year. She endorses feelings of hopelessness, helplessness, low mood, low motivation, low energy, increased sleep, and crying episodes. The patient vehemently denies any prior attempts at suicide and is currently denying any suicidal or homicidal ideation, intention, and/or plan. The patient does not report any significant history of bipolar disorder symptoms in the context of sobriety. The patient does have a significant history of substance abuse. The patient states that her drug of choice is alcohol with her last drink being this past Friday. The patient reports that she drinks up to 6 beers and a pint of fire ball per night. She states that this occurs daily. She reports she began drinking heavily at the age of 13. She states that within the past year she began using methamphetamines. She reports smoking and intranasally ingesting methamphetamines. She reports daily marijuana use. She reports smoking one pack per day of tobacco. She states that the longer she has been sober was for 18 months when she was on probation for multiple DWIs. The patient states that she's been to rehabilitation twice with the last time being this past September for 40 days in [place]. Patient states that she is interested diagnosed with depression and anxiety. The patient reports that she has had previous trials of Cymbalta, Seroquel, and Topamax. Patient denies any previous psychiatric hospitalizations. The patient is currently open for outpatient psychiatry with Dr Estrada. Patient denies any history of suicide attempts in the past. Hospital course: Upon admission to the unit patient was initially presenting as somewhat disorganized, with psychomotor slowing, and severe depression. Patient was however directable and agreeable to commence treatment. Patient got along well with other patients on the unit and followed unit protocol. Patient was compliant with the medications and denied any side effects throughout hospital course. Patient was started on Permax, Effexor, gabapentin and Seroquel. Seroquel was to augment her antidepressant as well as to treat any psychosis. Effexor was to manage PTSD and depressive symptoms. Patient spoke of her stressors and engaged in therapy both group and individual. Patient was also seen by medical team for history and physical exam. The patient's medications were gradually titrated to the final doses. The patient gradually improved in regards to her psychotic symptoms and was clear and coherent and was in touch with reality. Her depressive symptoms gradually improved and the patient was able to be out of bed more, participate in individual and milieu activities, and address her hygiene. The patient became very future oriented strong desire to go to rehabilitation and contacted the access number. On day of discharge, the patient is not reporting any suicidal or homicidal ideation, intention, and/or plan. She is not reporting any auditory or visual hallucinations. She is denying any paranoia or other delusions. She denies any access to firearms or other weapons. She reports no issues sleep or appetite. She has been adherent with medications not reporting any significant side effects at this time. The patient was counseled at length on her medications, following up with her outpatient appointments, and medication adherence. The patient does have significant history of substance abuse and was counseled at great length the need to abstain from all substances including alcohol, marijuana, and discussion with amphetamines. The patient scheduled for rehabilitation today at [facility] in [place], [place]. Mental status exam: General Appearance: Patient appears to be stated age is alert, pleasant, and cooperative. Patient is in no acute distress and has fair hygiene and grooming Behavior: Patient is calmly seated without any agitated behavior. Psychomotor activity is normal. Speech: Patient's speech is fluent and nonpressured. Mood/Affect: Patient reports their mood is "much better", affect is congruent and euthymic. Suicidality/Homicidality: Patient denies having any suicidal or homicidal ideation intent or plan. Perceptions: Patient denies any auditory or visual hallucinations. Though content/process: There is no evidence of any delusional thought content and thought process is linear and goal-directed. Patient is future oriented. Memory and concentration: AOX3, grossly intact for the purposes of this session. Can spell "WORLD" backwards correctly. Judgment and insight: Improved with guarded prognosis Impression: Drug-induced psychosis Major depressive disorder Methamphetamine abuse Cannabis abuse Alcohol abuse Nicotine dependence Plan: -Continue with discharge today as patient has improved and stabilized psychiatrically and is not currently an imminent threat to herself and/or others. Patient will remain at chronically elevated risk for harm to self and/or others due to her polysubstance abuse. -Continue medications: Habitrol patches Seroquel 100 mg by mouth at bedtime for mood stabilization/psychosis/mood augmentation Effexor XR 150 mg daily for depression/anxiety Gabapentin 100 mg by mouth 3 times a day for off label use for anxiety and neuropathy Topamax 50 daily at bedtime for off label use for alcohol cessation/mood stabilization -Patient was counseled on the need for medication compliance and appropriate follow-up at mental health and also primary care for medical issues. Patient verbalized understanding and agreed. -Social work to arrange for and conduct family meeting to ensure safety upon discharge and answer any questions/concerns. Social work also to arrange for patients follow up appointments with [facility] for substance abuse care. -Patient counseled on abstaining from recreational drugs and marijuana and alcohol. Was informed/educated on the adverse effects on their physical and mental health. Patient verbally agreed and understood. Patient will be going to [facility]. -Patient was instructed to return to the hospital or seek immediate medical care if their psychiatric or medical symptoms do worsen or reoccur. -Psychoeducation and supportive therapy provided to patient. Risks and benefits of pharmacological treatment versus the risks and benefits of nontreatment weight and discussed. Informed consent discussion held. Common side effects of psychotropics discussed such as, but not limited to headache, GI disturbance, sexual dysfunction, movement disorders, sedation, and orthostatic hypotension. Life threatening and blackbox warnings of prescribed medications also discussed. Potential risks of operating a vehicle or heavy machinery discussed with patient at length. Advised on importance of compliance and a reliable and responsible manner. Patient advised to review FDA consumer labeling of all medications prior to taking. Patient verbalized understanding of potential r isks, and agrees with current treatment plan. Patient advised to medically contact physician/emergency personnel if any acute changes in condition occur. Vital Signs Temp 97.9 F 01/15/21 09:07 Pulse 96 01/15/21 09:52 Resp 16 01/14/21 08:41 BP 122/60 01/15/21 09:32 Pulse Ox 96 01/14/21 08:41 Intake & Output 01/14/21 01/15/21 01/15/21 18:59 06:59 18:59 Weight 74.1 kg Laboratory Results Creatine Kinase 115 U/L (30-135) 01/13/21 12:10 Allergies Allergy/AdvReac Type Severity Reaction Status Date / Time No Known Allergies Allergy Unverified 01/11/21 20:54 Patient Condition at Discharge: Stable Plan - Discharge Summary Discharge Rx Participant: No New Discharge Prescriptions: New Nicotine 14Mg/24Hr Patch [Habitrol] 1 patch TRANSDERM DAILY 30 Days patch QUEtiapine [SEROquel] 100 mg PO HS 30 Days tab Lisinopril-Hctz 20-25 mg [Zestoretic 20-25] 1 each PO DAILY 30 Days tab Venlafaxine HCl ER [Effexor XR] 150 mg PO DAILY 30 Days cap.er.24h Multivitamins, Thera [Multivitamin (formulary)] 1 each PO DAILY 30 Days tab Gabapentin [Neurontin] 100 mg PO TID 30 Days cap Topiramate [Topamax] 50 mg PO HS 30 Days tab Continue Albuterol Sulfate [Proair Hfa] 2 puff INHALATION RT-Q6H PRN PRN Reason: Shortness Of Breath Vivitrol 380mg/4ml Vial 380 mg PO Q28D Loratadine [Claritin] 10 mg PO DAILY 30 Days tab Discontinued QUEtiapine [SEROquel] 75 mg PO HS #0 tab DULoxetine HCL [Cymbalta] 120 mg PO DAILY Topiramate [Topamax] 100 mg PO HS Ibuprofen [Motrin] 600 mg PO BID PRN PRN Reason: Pain Lisinopril-Hctz 20-25 mg [Zestoretic 20-25] 1 tab PO DAILY Discharge Medication List Albuterol Sulfate [Proair Hfa] 2 puff INHALATION RT-Q6H PRN 01/09/21 [History] Vivitrol 380mg/4ml Vial 380 mg PO Q28D 01/09/21 [History] Gabapentin [Neurontin] 100 mg PO TID 30 Days cap 01/15/21 [Rx] Lisinopril-Hctz 20-25 mg [Zestoretic 20-25] 1 each PO DAILY 30 Days tab 01/15/21 [Rx] Loratadine [Claritin] 10 mg PO DAILY 30 Days tab 01/15/21 [Rx] Multivitamins, Thera [Multivitamin (formulary)] 1 each PO DAILY 30 Days tab 01/15/21 [Rx] Nicotine 14Mg/24Hr Patch [Habitrol] 1 patch TRANSDERM DAILY 30 Days patch 01/15/21 [Rx] QUEtiapine [SEROquel] 100 mg PO HS 30 Days tab 01/15/21 [Rx] Topiramate [Topamax] 50 mg PO HS 30 Days tab 01/15/21 [Rx] Venlafaxine HCl ER [Effexor XR] 150 mg PO DAILY 30 Days cap.er.24h 01/15/21 [Rx] Follow up Appointment(s)/Referral(s): Nicolas Albrecht [Other] - 01/15/21 2:00 pm (Intake) Activity/Diet/Wound Care/Special Instructions: Activity and diet as tolerated. Avoid the use of street drugs and alcohol. Take all medications as prescribed. When you are in need of refills on your medications please contact your medical provider and/or outpatient psychiatrist to have this done. Please go to scheduled outpatient appointment for aftercare treatment. If symptoms return or become worse, call the crisis line at and/or go to the nearest emergency room for evaluation. Discharge Disposition: HOME SELF-CARE
[2021-01-15] MEDS ORDERED: GABAPENTIN 100 MG CAP PO SCH (16:00)
[2021-01-15] MEDS ORDERED: TOPIRAMATE 25 MG TAB PO SCH (21:00)
== END 2021-01-15 14:35 | disposition home or self-care (01) | DRG 896 ==
LOC: 3MHU 18:51
PROVIDERS: ADMIT Psychiatry & Neurology Psychiatry; ATTEND Psychiatry & Neurology Psychiatry
DX: F15.159 Other stimulant abuse with stimulant-induced psychotic disorder, unspecified (principal); G93.41 Metabolic encephalopathy; E87.1 Hypo-osmolality and hyponatremia; F17.210 Nicotine dependence, cigarettes, uncomplicated; F12.10 Cannabis abuse, uncomplicated; F10.10 Alcohol abuse, uncomplicated; E16.2 Hypoglycemia, unspecified; F31.9 Bipolar disorder, unspecified; F43.10 Post-traumatic stress disorder, unspecified; G40.909 Epilepsy, unspecified, not intractable, without status epilepticus; G62.9 Polyneuropathy, unspecified; E03.9 Hypothyroidism, unspecified; I10 Essential (primary) hypertension; J45.909 Unspecified asthma, uncomplicated; Z59.0 Homelessness; Z65.3 Problems related to other legal circumstances; Z79.899 Other long term (current) drug therapy
CPT/HCPCS: 82550

== ENCOUNTER → 2022-08-27 | Outpatient (CLI) | payer OTHER ==
--- NOTE | 2022-08-27 14:55 | XR ---
EXAMINATION TYPE: XR knee limited RT DATE OF EXAM: 08/27/2022 2:34 PM INDICATION: Patient age:Female; 37 years old; Reason for study: M25.561 Pain in Rt Knee; PHH. COMPARISON: None. TECHNIQUE: The Right knee(s) was examined in frontal and lateral projections. FINDINGS: No evidence of any acute osseous pathology, joint space narrowing, soft tissue swelling, or joint effusion is noted. IMPRESSION: No acute osseous pathology.
== END | disposition home or self-care (01) ==
LOC: RADXRMAIN 14:19
PROVIDERS: ATTEND Family Medicine
DX: M25.561 Pain in right knee (principal)